=== PATIENT | male | born 1965 | race Caucasian/White ===

== ENCOUNTER 2017-10-29 13:06 | Emergency (ER) | payer BC, OTHER ==
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
[2017-10-29 15:06] VITALS: BP 119/70
== END 2017-10-29 15:05 | disposition home or self-care (01) ==
LOC: ED 13:06
DX: Z04.1 Encounter for examination and observation following transport accident (principal); R51 Headache; H92.02 Otalgia, left ear; F17.200 Nicotine dependence, unspecified, uncomplicated
CPT/HCPCS: 70450; 72125; 99282